=== PATIENT | male | born 1990 | race Two or more races ===

== ENCOUNTER 2023-08-01 21:22 | Emergency (ER) | payer MEDICAID, OTHER ==
[~2023-08-01] VITALS: Ht 185.4 cm; Wt 119.0 kg
[2023-08-02] MEDS ORDERED: TETANUS-DIPTH-ACEL PERTUSSIS 0.5ML SYR Tdap IM ONE (02:00)
[2023-08-02] MEDS ORDERED: IBUP-1456 PO (02:03)
[2023-08-02] MEDS ORDERED: AMOX875T4 PO (02:03)
[2023-08-02 06:44] VITALS: BP 124/83; PULSE 80; RESP 20; TEMP 98; O2SAT 97
== END 2023-08-02 02:03 | disposition home or self-care (01) ==
LOC: ER 21:22
DX: S80.812A Abrasion, left lower leg, initial encounter (principal); Z79.899 Other long term (current) drug therapy; W54.0XXA Bitten by dog, initial encounter; Y93.89 Activity, other specified; Y92.89 Other specified places as the place of occurrence of the external cause; Y99.8 Other external cause status
CPT/HCPCS: 90471; 90715